=== PATIENT | female | born 1985 | race Caucasian/White ===

== ENCOUNTER 2025-04-17 18:12 | Emergency (ER) | payer BC ==
[~2025-04-17] VITALS: Ht 172.7 cm; Wt 68.0 kg
[2025-04-17] MEDS ORDERED: Dexamethasone Sod Phos 10 MG/ML 1ML VIAL PO ONE (18:20)
[2025-04-17] MEDS ORDERED: EPIPEN JR0.15 MG/0. IM (20:35)
== END 2025-04-17 20:48 | disposition home or self-care (01) ==
LOC: ER 18:12
DX: T63.441A Toxic effect of venom of bees, accidental (unintentional), initial encounter (principal); Z88.5 Allergy status to narcotic agent
CPT/HCPCS: 99283; A9270; J1100